=== PATIENT | female | born 1990 | race Two or more races ===

== ENCOUNTER 2019-07-12 13:16 | Emergency (ER) | payer SELFPAY ==
[~2019-07-12] VITALS: Ht 157.5 cm; Wt 50.8 kg
[2019-07-12] MEDS ORDERED: NKM (13:27)
--- NOTE | 2019-07-12 13:32 | NUR ---
ED Nurse Note: [facility] staff came due to redness, itching, and rash on the face, neck, anterior chest, back, and abdomen started at 1130 this morning. Patient denies SOB/n/v. Patient refused to be in hospital gown.
[2019-07-12 13:34] VITALS: BP 111/73
[2019-07-12] MEDS ORDERED: DiphenhydrAMINE 50mg/ml Inj IM ONE (13:45)
--- NOTE | 2019-07-12 14:02 | Emergency Room Report ---
History of Present Illness General Chief Complaint: Allergic Reaction Source: Patient Present Illness HPI 29-year-old female presents to the emergency department complaining of swelling , erythema and itchiness progressively to the face chest and arms as well as stomach x3 hours. Patient reports that she had similar episode on Friday which resolved after taking Benadryl however she states she only had a small red spot on her arm. Patient reports that this presentation is much worse. Denies pain. Pt. denies fevers, chills or swollen tender lymph nodes. Denies lesions/rashes elsewhere on the body. Denies new medications or body washes or creams. Denies swelling of the lips, tongue , throat or airway. Denies wheezing , or shortness of breath. Denies recent travel, recent illness or ill contacts. denies blisters, oral lesions, or sloughing of the skin Allergies: Coded Allergies: No Known Allergies (Unverified , 07/12/19) Patient History Past Medical History: see triage record Past Surgical History: none Pertinent Family History: none Last Menstrual Period: 07/04/19 Now: No : 0 Para: 0 Reviewed Nursing Documentation: PMH: Agreed; PSxH: Agreed Nursing Documentation-PMH Past Medical History: No Stated History Review of Systems All Other Systems: negative except mentioned in HPI Physical Exam Vital Signs Date Time Temp Pulse Resp B/P (MAP) Pulse Ox O2 Delivery O2 Flow Rate FiO2 07/12/19 13:23 98.1 80 17 111/73 (86) 98 Room Air Sp02 EP Interpretation: reviewed, normal General Appearance: no apparent distress, alert, GCS 15, non-toxic Head: normocephalic, atraumatic Eyes: bilateral eye normal inspection, bilateral eye PERRL ENT: hearing grossly normal, normal voice, other - generalized urticaria of the face, neck, scalp and anterior chest, no swelling of the lips or the tongue. no stridor. No oral lesions Neck: full range of motion, no bony tend, other - no stridor Respiratory: chest non-tender, lungs clear, normal breath sounds, no respiratory distress, no accessory muscle use, no wheezing, speaking full sentences Cardiovascular #1: regular rate, rhythm Musculoskeletal: normal range of motion, gait/station normal, non-tender Neurologic: alert, motor strength/tone normal, oriented x3, sensory intact, responsive, speech normal Psychiatric: judgement/insight normal Skin: rash - generalized urticaria of the face, neck, scalp and anterior chest , and flank area. scant on forearms bilaterally, no blisters, vesicles or sloughing of the skin. negative nicklosky. Lymphatic: no adenopathy Medical Decision Making PA Attestation Dr. Grigsby Is my supervising Physician whom patient management has been discussed with. Diagnostic Impression: Primary Impression: Allergic reaction Qualified Codes: T78.40XA - Allergy, unspecified, initial encounter ER Course 29-year-old female presents to the emergency department complaining of swelling , erythema and itchiness progressively to the face chest and arms as well as stomach x3 hours. Patient reports that she had similar episode on Friday which resolved after taking Benadryl however she states she only had a small red spot on her arm. Patient reports that this presentation is much worse. Denies pain. Pt. denies fevers, chills or swollen tender lymph nodes. Denies lesions/rashes elsewhere on the body. Denies new medications or body washes or creams. Denies swelling of the lips, tongue , throat or airway. Denies wheezing , or shortness of breath. Denies recent travel, recent illness or ill contacts. denies blisters, oral lesions, or sloughing of the skin Ddx considered but are not limited to cellulitis, allergic reaction, angio edema , abscess Vital signs: are WNL, pt. is afebrile H&PE are most consistent with allergic reaction - Generalized urticaria. No obvious airway compromise no evidence of anaphylaxis. ORDERS: none required at this time, the diagnosis is clinical ED INTERVENTIONS: - IM Benadryl- -Prednisone 60mg PO DISCHARGE: At this time pt. is stable for d/c to home. Will provide printed patient care instructions, and any necessary prescriptions. Care plan and follow up instructions have been discussed with the patient prior to discharge. Last Vital Signs Date Time Temp Pulse Resp B/P (MAP) Pulse Ox O2 Delivery O2 Flow Rate FiO2 07/12/19 13:34 80 17 Room Air 07/12/19 13:34 98.1 111/73 98 Disposition: HOME, SELF-CARE Condition: Stable Scripts Epinephrine (Epipen 2-Flaco) 0.3 Mg/0.3 Ml Auto.injct 0.3 MG IM PRN, #1 EA Prov: Humera Beach 07/12/19 Prednisone* (PREDNISONE*) 20 Mg Tablet 40 MG ORAL DAILY for 3 Days, #6 TAB Prov: Humera Beach 07/12/19 Diphenhydramine Hcl (BENADRYL ALLERGY) 25 Mg Tablet 25-50 MG PO Q6HR, #30 TAB Prov: Humera Beach 07/12/19 Patient Instructions: Allergies Additional Instructions: Take medications as directed. Follow up with a Primary Care Provider in 3-5 days, even if your symptoms have resolved. --Please review list of primary care clinics, if you do not already have a primary care provider Return sooner to ED if new symptoms occur, or current symptoms become worse. Do not drink alcohol, drive, or operate heavy machinery while taking Benadryl as this may cause drowsiness. - Please note that this Emergency Department Report was dictated using [employer] technology software, occasionally this can lead to erroneous entry secondary to interpretation by the dictation equipment. Humera Beach Jul 12, 2019 14:02
[2019-07-12] MEDS ORDERED: PREDNISONE20 MG ORAL (14:13)
[2019-07-12] MEDS ORDERED: BENADRYL ALLERG25 M1 PO (14:13)
[2019-07-12] MEDS ORDERED: EPIPEN 2-P0.3 MG/0.3 IM (14:13)
--- NOTE | 2019-07-12 14:19 | NUR ---
ER DISCHARGE NOTE: Patient is cleared to be discharged per ERMD, pt is aox4, on room air, with stable vital signs. pt was given dc and prescription instructions, pt was able to verbalize understanding, pt id band removed without complications. pt is able to ambulate with steady gait accompanied by friend. pt took all belongings.
[2019-07-12 14:21] VITALS: BP 111/73
== END 2019-07-12 14:35 | disposition home or self-care (01) ==
LOC: EMR 14:32
DX: T78.40XA Allergy, unspecified, initial encounter (principal)
CPT/HCPCS: 96372; 99283; J1200; J7512

== ENCOUNTER 2019-07-14 11:13 | Emergency (ER) | payer BC ==
[~2019-07-14] VITALS: Ht 157.5 cm; Wt 50.3 kg
[~2019-07-14 11:13] MED LIST: BENADRYL ALLERG25 M1 PO; EPIPEN 2-P0.3 MG/0.3 IM; NKM; PREDNISONE20 MG ORAL
[2019-07-14 11:34] VITALS: BP 121/72
[2019-07-14] MEDS ORDERED: DiphenhydrAMINE 50mg/ml Inj IVP ONE (12:15)
--- NOTE | 2019-07-14 12:41 | Emergency Room Report ---
History of Present Illness General Chief Complaint: Skin Rash/Abscess Source: Patient Present Illness HPI 29-year-old female presents to the emergency department complaining of persistent intermittent urticaria despite being evaluated 3 days ago and placed on Benadryl every 6 hours and prednisone 40 mg daily. Patient reports that her rash is exacerbated upon any oral intake for example apple, clam chowder and some tea. Patient reports she is unable to identify any consistent factor that is contributing to her reaction. Patient states that previously she was taking spironolactone for several weeks however she discontinued that medication after initial visit in ED for allergic reaction. Patient reports she has only been able to drink water. She denies N/V, fevers or chills. Pt. denies . She denies abdominal pain, oral lesions, wheezing, SOB, or swelling of the lips or tongue. pt. reports new onset of a ST today. She denies cough, recent URI, or hx of immune compromise. pt. does not use any other medications or supplements. Denies pain. Pt. reports severe itching all over. Pt. reports she has an appt. with her sweat band sewer today at 4pm. Allergies: Coded Allergies: No Known Allergies (Unverified , 07/12/19) Patient History Past Medical History: see triage record Past Surgical History: none Pertinent Family History: none Now: No Reviewed Nursing Documentation: PMH: Agreed; PSxH: Agreed Nursing Documentation-PMH Past Medical History: No Stated History Review of Systems All Other Systems: negative except mentioned in HPI Physical Exam Vital Signs Date Time Temp Pulse Resp B/P (MAP) Pulse Ox O2 Delivery O2 Flow Rate FiO2 07/14/19 11:18 98.1 118 20 120/80 (93) 96 Room Air Sp02 EP Interpretation: reviewed, normal General Appearance: alert, GCS 15, non-toxic, mild distress Head: normocephalic, atraumatic Eyes: bilateral eye normal inspection, bilateral eye PERRL ENT: hearing grossly normal, normal pharynx, no angioedema, normal voice, other Neck: full range of motion, other - no stridor Respiratory: chest non-tender, lungs clear, normal breath sounds, no wheezing, speaking full sentences Cardiovascular #1: regular rate, rhythm, tachycardia Gastrointestinal: non tender, soft Musculoskeletal: normal range of motion, gait/station normal, non-tender Neurologic: alert, motor strength/tone normal, oriented x3, sensory intact, responsive, speech normal Psychiatric: judgement/insight normal Skin: rash - confluent urticarial type erythematous plaques on the cheeks, neck , torso, upper back, bilateral forearms and thighs. No blisters, vesicles or sloughing of the skin. Lymphatic: no adenopathy Medical Decision Making PA Attestation Dr. Oneill Is my supervising Physician whom patient management has been discussed with. Diagnostic Impression: Primary Impression: Allergic reaction Qualified Codes: T78.40XA - Allergy, unspecified, initial encounter ER Course 29-year-old female presents to the emergency department complaining of persistent intermittent urticaria despite being evaluated 3 days ago and placed on Benadryl every 6 hours and prednisone 40 mg daily. Patient reports that her rash is exacerbated upon any oral intake for example apple, clam chowder and some tea. Patient reports she is unable to identify any consistent factor that is contributing to her reaction. Patient states that previously she was taking spironolactone for several weeks however she discontinued that medication after initial visit in ED for allergic reaction. Patient reports she has only been able to drink water. She denies N/V, fevers or chills. Pt. denies . She denies abdominal pain, oral lesions, wheezing, SOB, or swelling of the lips or tongue. pt. reports new onset of a ST today. She denies cough, recent URI, or hx of immune compromise. pt. does not use any other medications or supplements. Denies pain. Pt. reports severe itching all over. Pt. reports that she has an appointment with an sweat band sewer today at 4pm. Ddx considered but are not limited to cellulitis, allergic reaction, angio edema , abscess Vital signs: other than mild tachycardia , the VS are WNL, pt. is afebrile . Pt. will be given fluids. H&PE are most consistent with allergic reaction by unknown cause. No evidence to suggest acute impending airway compromise or anaphylaxis. ORDERS: -CBC: wbc's 15.5 -CMP: unremarkable ED INTERVENTIONS: -Benadryl IV -1000cc NS IV BOLUS -500cc NS IV BOLUS -Prednisone 20mg PO DISCHARGE: At this time pt. is stable for d/c to home. Will provide printed patient care instructions, and any necessary prescriptions. Care plan and follow up instructions have been discussed with the patient prior to discharge. Labs Test 07/14/19 12:28 White Blood Count 15.1 K/UL (4.8-10.8) Red Blood Count 5.12 M/UL (4.20-5.40) Hemoglobin 15.3 G/DL (12.0-16.0) Hematocrit 43.9 % (37.0-47.0) Mean Corpuscular Volume 86 FL (80-99) Mean Corpuscular Hemoglobin 29.8 PG (27.0-31.0) Mean Corpuscular Hemoglobin Concent 34.8 G/DL (32.0-36.0) Red Cell Distribution Width 11.2 % (11.6-14.8) Platelet Count 328 K/UL (150-450) Mean Platelet Volume 6.8 FL (6.5-10.1) Neutrophils (%) (Auto) % (45.0-75.0) Lymphocytes (%) (Auto) % (20.0-45.0) Monocytes (%) (Auto) % (1.0-10.0) Eosinophils (%) (Auto) % (0.0-3.0) Basophils (%) (Auto) % (0.0-2.0) Differential Total Cells Counted 100 Neutrophils % (Manual) 93 % (45-75) Lymphocytes % (Manual) 6 % (20-45) Monocytes % (Manual) 1 % (1-10) Eosinophils % (Manual) 0 % (0-3) Basophils % (Manual) 0 % (0-2) Band Neutrophils 0 % (0-8) Platelet Estimate Adequate Platelet Morphology Normal Red Blood Cell Morphology Normal Sodium Level 142 MMOL/L (136-145) Potassium Level 4.2 MMOL/L (3.5-5.1) Chloride Level 106 MMOL/L (98-107) Carbon Dioxide Level 28 MMOL/L (21-32) Anion Gap 8 mmol/L (5-15) Blood Urea Nitrogen 11 mg/dL (7-18) Creatinine 0.8 MG/DL (0.55-1.30) Estimat Glomerular Filtration Rate > 60 mL/min (>60) Glucose Level 139 MG/DL (74-106) Calcium Level 9.1 MG/DL (8.5-10.1) Total Bilirubin 0.3 MG/DL (0.2-1.0) Aspartate Amino Transf (AST/SGOT) 19 U/L (15-37) Alanine Aminotransferase (ALT/SGPT) 41 U/L (12-78) Alkaline Phosphatase 59 U/L (46-116) Total Protein 7.6 G/DL (6.4-8.2) Albumin 4.0 G/DL (3.4-5.0) Globulin 3.6 g/dL Albumin/Globulin Ratio 1.1 (1.0-2.7) Last Vital Signs Date Time Temp Pulse Resp B/P (MAP) Pulse Ox O2 Delivery O2 Flow Rate FiO2 07/14/19 11:34 98.1 108 24 121/72 98 Room Air Status: improved Disposition: HOME, SELF-CARE Condition: Stable Scripts Prednisone* (PREDNISONE*) 20 Mg Tablet 40 MG ORAL DAILY for 2 Days, #4 TAB Prov: Humera Beach 07/14/19 Referrals: NON PHYSICIAN (PCP) Humera Beach Jul 14, 2019 12:40
[2019-07-14 12:51] LABS: HEMATOCRIT 43.9 % (37.0-47.0); HEMOGLOBIN 15.3 G/DL (12.0-16.0); MEAN CORPUSCULAR VOLUME 86 FL (80-99); PLATELET COUNT 328 K/UL (150-450); RED BLOOD COUNT 5.12 M/UL (4.20-5.40); RED CELL DISTRIBUTION WIDTH 11.2 % (11.6-14.8); WHITE BLOOD COUNT 15.1 K/UL (4.8-10.8)
[2019-07-14 13:03] LABS: ANION GAP 8 mmol/L (5-15); BLOOD UREA NITROGEN 11 mg/dL (7-18); CALCIUM 9.1 MG/DL (8.5-10.1); CARBON DIOXIDE 28 MMOL/L (21-32); CHLORIDE 106 MMOL/L (98-107); CREATININE 0.8 MG/DL (0.55-1.30); POTASSIUM 4.2 MMOL/L (3.5-5.1); SODIUM 142 MMOL/L (136-145)
[2019-07-14 13:09] LABS: ALANINE AMINOTRANSFERASE 41 U/L (12-78); ALBUMIN/GLOBULIN RATIO 1.1 (1.0-2.7); ALKALINE PHOSPHATASE 59 U/L (46-116); ASPARTATE AMINO TRANSFERASE 19 U/L (15-37); BILIRUBIN,TOTAL 0.3 MG/DL (0.2-1.0)
[2019-07-14] MEDS ORDERED: PREDNISONE20 MG ORAL (14:10)
[2019-07-14 15:25] VITALS: BP 118/70
[2019-07-14 15:50] VITALS: BP 118/70
== END 2019-07-14 15:50 | disposition home or self-care (01) ==
LOC: EMR 12:05 → EEVIPCON 12:05 → EMR 15:50
DX: T78.40XA Allergy, unspecified, initial encounter (principal)
CPT/HCPCS: 36415; 80053; 85007; 85025; 96361; 96374; 99284; J1200; J7040; J7512